=== PATIENT | male | born 1990 | race Caucasian/White ===

== ENCOUNTER 2017-01-06 13:16 | Emergency (ER) | payer SELFPAY ==
[~2017-01-06] VITALS: Ht 177.8 cm; Wt 79.4 kg
[2017-01-06] MEDS ORDERED: VANCOMYCIN PER PHARMACY MC ONE (13:45)
[2017-01-06 14:07] LABS: BASO % 0 % (0-3); EOS # 0.5 x10^3/uL (0.0-0.7); EOS % 5 % (0-3); HEMATOCRIT 43.2 % (39.0-53.0); HEMOGLOBIN 15.3 g/dL (13.0-17.5); LYMPH % 29 % (24-48); MEAN CORPUSCULAR HEMOGLOBIN 31 pg (25-35); MEAN CORPUSCULAR HGB CONC 35 g/dL (31-37); MEAN CORPUSCULAR VOLUME 88 fL (79-100); MONO # 0.6 x10^3/uL (0.0-1.1); MONO % 6 % (0-9); NEUT # 6.3 x10^3uL (1.8-7.7); NEUT % 60 % (31-73); PLATELET COUNT 230 x10^3/uL (140-400); RED BLOOD COUNT 4.93 x10^6/uL (4.30-5.70); RED CELL DISTRIBUTION WIDTH 12.9 % (11.5-14.5); WHITE BLOOD COUNT 10.5 x10^3/uL (4.0-11.0)
[2017-01-06] MEDS ORDERED: VANCOMYCIN 2 GM in IV NORMAL SALINE 500ML 500 ML IV ONE (14:15)
[2017-01-06 14:16] LABS: C REACTIVE PROTEIN 7.1 mg/L (0-3.3); CALCIUM 8.8 mg/dL (8.5-10.1); CREATININE 0.9 mg/dL (0.7-1.3); GFR 101.2; POTASSIUM 3.6 mmol/L (3.5-5.1)
[2017-01-06] MEDS ORDERED: IV NORMAL SALINE 500ML 500 ML ONE (14:44)
[2017-01-06] MEDS ORDERED: VANCOMYCIN 1 GM VIAL. ONE (14:45)
--- NOTE | 2017-01-06 15:06 | RAD ---
Exam performed: Right upper extremity venous Doppler and ultrasound soft tissues of the right upper extremity. Indication:R forearm abscess vs dvt, h/o IVDU Date of Service: 01/06/2017 3:39 PM. Comparison:None available. Discussion: Multiple longitudinal and transverse high resolution real-time images of the venous system of the right upper extremity were obtained with color and Doppler sampling. The jugular, subclavian, axillary, brachial, cephalic, basilic, radial and ulnar veins are all patent and demonstrate normal flow and, where appropriate, compressibility. Left subclavian vein is patent. There is diffuse soft tissue swelling in the right upper extremity. A complex fluid collection measuring 2.4 x 2.4 x 1.2 cm is seen in in the right forearm in the area of concern suspicious for an abscess Impression: Normal color duplex ultrasound of the venous system of the ] right] upper extremity. Complex 2.1 x 2.4 x 1.2 cm fluid collection at the site of concern probably a small abscess.
[2017-01-06 15:11] LABS: SEDIMENTATION RATE 3 (0-15)
--- NOTE | 2017-01-06 15:18 | PHYS DOC ---
General Chief Complaint: ABSCESS Stated Complaint: ABSCESS Time Seen by MD: 13:34 Source: patient Exam Limitations: no limitations Problems: History of Present Illness Initial Comments Patient is a 26-year-old male who comes to the ED complaining of right forearm pain and swelling. Patient states that he was at an inpatient detox center and an IV was placed causing swelling. He states he's had pain and swelling since that time. I comments on the track brunson at his right antecubital and he does state he has history of IV drug use. He is afebrile and not tachycardic I advised him we will work him up for DVT and infection. Onset: other Severity: moderate Pain/Injury Location: right forearm Method of Injury: other Modifying Factors: worse with jarring, worse with movement Allergies: Coded Allergies: vancomycin (Verified Allergy, Intermediate, hives itching, 01/06/17) this developed after med infused Past Medical History Medical History: other Surgical History: noncontributory Social History Smoker: cigarettes Alcohol: heavy Drugs: marijuana, other (intravenous drug use and admits to methamphetamine) Review of Systems Constitutional: denies chills, denies diaphoresis, denies fever, denies malaise Respiratory: denies cough, denies shortness of breath Cardiovascular: denies chest pain, denies syncope Gastrointestinal: denies abdominal pain, denies diarrhea, denies nausea, denies vomiting Musculoskeletal: see HPI, denies back pain, denies joint swelling, denies neck pain Skin: see HPI Psychiatric/Neurological: denies numbness, denies paresthesia, denies weakness Physical Exam General Appearance: WD/WN, no apparent distress HEENT: normal ENT inspection Neck: non-tender, supple Cardiovascular/Respiratory: regular rate, rhythm, normal peripheral pulses, no respiratory distress Back: no CVA tenderness, no vertebral tenderness Elbow/Forearm: pain, soft tissue tenderness, swelling (right forearm swelling and erythema noted no palpable subcutaneous mass distal pulses are normal the extremity is neurovascularly intact track brunson are noted at the antecubital and I questioned him about his hand he states there are abrasions.) Neurologic/Tendon: normal sensation, normal motor functions, normal tendon functions, responds to pain, no evidence tendon injury Psychiatric: alert, oriented x 3 Skin: warm/dry (right forearm changes as above) Orders, Labs, Meds PATIENT: LIZ GARCIA ACCOUNT: [id number] : 1990 LOCATION: ER AGE: 26 SEX: M EXAM [id number] STATUS: REG ER ORD. PHYSICIAN: LOU HWANG DO REASON: R forearm abscess vs dvt, h/o IVDU PROCEDURE: EXT NON VASC RIGHT; VENOUS UPPER EXTREMITY RIGHT Exam performed: Right upper extremity venous Doppler and ultrasound soft tissues of the right upper extremity. Indication:R forearm abscess vs dvt, h/o IVDU Date of Service: 01/06/2017 3:39 PM. Comparison:None available. Discussion: Multiple longitudinal and transverse high resolution real-time images of the venous system of the right upper extremity were obtained with color and Doppler sampling. The jugular, subclavian, axillary, brachial, cephalic, basilic, radial and ulnar veins are all patent and demonstrate normal flow and, where appropriate, compressibility. Left subclavian vein is patent. There is diffuse soft tissue swelling in the right upper extremity. A complex fluid collection measuring 2.4 x 2.4 x 1.2 cm is seen in in the right forearm in the area of concern suspicious for an abscess Impression: Normal color duplex ultrasound of the venous system of the ] right] upper extremity. Complex 2.1 x 2.4 x 1.2 cm fluid collection at the site of concern probably a small abscess. DICTATED AND SIGNED BY: MORGAN GIORDANO MD DATE: 01/06/17 1500 CC: PCP,NO; LOU HWANG DO ~ Slight elevation in CRP and sedimentation rate otherwise ED workup reassuring. D -dimer is negative however ultrasounds are today completed and confirms possible abscess versus cellulitis. Patient has been requesting pain medications he was given Toradol but is requesting opiates "I told the doctor I only was addicted to alcohol and methamphetamines I don't have a problem with opiates." The patient did not tell me he had no issue with opiates and his family member did call and speak with the RN. The RN gave no information to the family member but they requested that we give the patient no pain medications as he has prior issues with opiates. Vancomycin was initiated, the patient did have a localized skin reaction consisting of rash which I gave him Solu-Medrol Benadryl and Pepcid with with resolution of the rash. The RN states that as soon as patient found out no opiates would be prescribed began requesting immediate discharge. I was able to get a prednisone burst to the nurse to give to him before he left, leaving without instructions from me. Departure Time of Disposition: 16:22 Disposition: 01 HOME, SELF-CARE Diagnosis: right forearm cellulitis versus abscess Condition: GOOD Patient Instructions: Abscess, [id number], Cellulitis, [id number] Additional Instructions: Keep activity to "pain free." [id number] Tylenol for baseline discomfort. Warm compresses to area 4 times daily. Prescription: Bactrim DS, ibuprofen 800 mg Take medications with food to avoid adverse GI effects. Follow-up with your doctor in 3-5 days for recheck Return to ED with new or changing symptoms. LOU HWANG DO Jan 06, 2017 15:18
[2017-01-06] MEDS ORDERED: KETOROLAC 30 MG/ML VIAL. IV ONE (15:30)
[2017-01-06 16:20] VITALS: BP 131/68
[2017-01-06] MEDS ORDERED: SULF1TAB24 PO (16:21)
[2017-01-06] MEDS ORDERED: IBUP800T19 PO (16:21)
[2017-01-06] MEDS ORDERED: methylPREDNISolone SOD SUCC PF 125 MG/2 ML VIAL. IV ONE (16:30)
[2017-01-06] MEDS ORDERED: FAMOTIDINE 20 MG/2 ML VIAL IVP ONE (16:30)
[2017-01-06] MEDS ORDERED: diphenhydrAMINE 50 MG/ML VIAL IVP ONE (16:30)
[2017-01-06] MEDS ORDERED: PRED20TA PO (16:53)
== END 2017-01-06 16:55 | disposition home or self-care (01) ==
LOC: ER 13:16
DX: M79.631 Pain in right forearm (principal); R22.31 Localized swelling, mass and lump, right upper limb; F17.210 Nicotine dependence, cigarettes, uncomplicated; F12.10 Cannabis abuse, uncomplicated; Z88.1 Allergy status to other antibiotic agents
CPT/HCPCS: 36415; 76881; 80048; 85025; 85379; 85651; 86140; 87040; 93971; 96365; 96366; 96375; 99285; J1200; J1885; J2930; J3370; J7040; S0028